=== PATIENT | female | born 1970 | race Caucasian/White ===

== ENCOUNTER 2020-04-04 13:04 | Outpatient (REF) | payer OTHER, SELFPAY | END 2020-04-04 13:05 | disposition home or self-care (01) | LOC: HO.LAB 13:04 | PROVIDERS: Visit Provider Internal Medicine | DX: Z20.822 Contact with and (suspected) exposure to COVID-19 (principal) | CPT/HCPCS: 36415; C9803; U0003; U0005 ==

== ENCOUNTER 2020-04-21 10:10 | Outpatient (REF) | payer OTHER, SELFPAY | END 2020-04-21 10:11 | disposition home or self-care (01) | LOC: HO.LAB 10:10 | PROVIDERS: PCP Internal Medicine; Visit Provider Internal Medicine | DX: Z20.822 Contact with and (suspected) exposure to COVID-19 (principal) | CPT/HCPCS: 36415; C9803; U0003; U0005 ==

== ENCOUNTER 2020-07-11 09:36 | Outpatient (REF) | payer OTHER, SELFPAY ==
[2020-07-11 09:53] LABS: COVID-19 Test Negative (Negative)
== END 2020-07-11 09:37 | disposition home or self-care (01) ==
LOC: HO.LAB 09:36
PROVIDERS: Visit Provider Internal Medicine
DX: Z20.822 Contact with and (suspected) exposure to COVID-19 (principal)
CPT/HCPCS: 36415; 87635; C9803

== ENCOUNTER 2021-09-09 22:50 | Emergency (ER) | payer OTHER, SELFPAY ==
[2021-09-09 23:29] VITALS: BP 128/89; PULSE 73; RESP 16; TEMP 36.2; O2SAT 94; BMI 34.4
--- NOTE | 2021-09-10 00:29 | ED_ITS ---
HPI - Extremity Problem General Chief complaint: Extremity Problem Stated complaint: Leg pain Time Seen by Provider: 09/09/21 23:53 History of Present Illness HPI Narrative: Patient is a 51-year-old female presents today with having left leg bruising. Is an area of bruising approximately 3 cm x 3 cm in size. Patient did not recall any specific event that triggered this. Came in for help. Patient denies any shortness of breath any chest pain any dizziness. Denies any traveling. Denies any history of hormone replacement. No history of blood clots in the past. Patient denies any leg swelling. Came here for the bruising. Patient from home. No cough no congestion or upper respiratory symptoms. No diaphoresis. No difficulty ambulating. Related Data Allergies Allergy/AdvReac Type Severity Reaction Status Date / Time Penicillins [PENICILLINS] Allergy Unknown RASH Verified 09/09/21 23:32 sulfamethoxazole Allergy Unknown VOMITING, Verified 09/09/21 23:32 [From BACTRIM] DIZZY trimethoprim [From BACTRIM] Allergy Unknown VOMITING, Verified 09/09/21 23:32 DIZZY SEASONAL ALLERGIES Allergy Unknown ITCHY Uncoded 09/09/21 23:32 EYES, RUNNY NOSE, COUGH Review of Systems Review of Systems: Positive leg swelling Yes all other systems are reviewed and are negative PMFSH Past Medical History Attestation statement: The following information was validated with the patient. Social History Social History Advance Directives: No Physical Exam Vital Signs: Vital Signs: Last Vital Signs Temp 97.1 F 09/09/21 23:29 Pulse 73 09/09/21 23:29 Resp 16 09/09/21 23:29 BP 128/89 09/09/21 23:29 Pulse Ox 94 09/09/21 23:29 O2 Del Method 09/09/21 23:29 BMI result Body Mass Index 34.4 Appearance: Alert. Oriented X3. No acute distress. Eyes: Pupils equal, round and reactive to light. ENT: Pharynx normal. Neck: Normal inspection. Neck supple. No lymph nodes noted. No crepitus CVS: Normal heart rate and rhythm. Pulses normal. Normal S1 and S2 Respiratory: No respiratory distress. Breath sounds normal. No Wheezing. No rales Abdomen: Soft and nontender. No rigidity. No distention. good BS x4 Skin: Skin warm and dry. Normal skin color. Normal skin turgor. Extremities: No lower extremity edema. Neurovascular intact to all extremities. No Lacerations. Positive contusion to the left calf area proximally 3 cm x 3 cm in size. Neuro: Oriented X 3. No motor deficit. No sensory deficit. Moving all extermities. No slurred speech MDM - Extremity (Nontraumatic) MDM Narrative Medical decision making narrative: Well-appearing no acute distress. No shortness of breath no evidence for pulmonary emboli. Positive contusion to the calf area. Question secondary to DVT. A D-dimer will be ordered. If it is negative will get patient an ultrasound in a.m.. If it is positive the patient's shot of Lovenox and get ultrasound in a.m.. Currently in stable condition. Patient's D-dimer was negative. Unlikely be of DVT. Nevertheless an ultrasound be ordered for a.m.. Will not give anticoagulation at this Lab Data Result diagrams: 09/10/21 00:59 09/10/21 00:59 Labs: Lab Results 09/10/21 09/10/21 09/10/21 Range/Units 00:59 00:59 00:59 WBC 13.9 H (4.8-10.8) X10*3/uL RBC 4.54 (4.20-5.50) X10*6/uL Hgb 13.3 (12.0-16.0) g/dl Hct 40.0 (37.0-47.0) % MCV 88.1 (80.0-98.0) fL MCH 29.3 (27.0-33.0) pg MCHC 33.3 (31.0-35.0) g/dl RDW 13.0 (11.0-16.0) % Plt Count 342 (160-400) X10*3/uL MPV 8.8 L (9.4-12.3) fL Immature Gran % (Auto) 0.2 (0.0-0.4) % Neut % (Auto) 58.0 (45-73) % Lymph % (Auto) 32.5 (20-40) % [place] % (Auto) 7.2 (2-11) % Eos % (Auto) 1.7 (0-4) % Baso % (Auto) 0.4 (0-2) % Lymph # (Auto) 4.5 (1.2-4.9) X10*3/uL [place] # (Auto) 1.0 (0.1-1.2) X10*3/uL Eos # (Auto) 0.2 (0.0-0.4) X10*3/uL Baso # (Auto) 0.1 (0.0-0.2) X10*3/uL Abs Immat Gran (auto) 0.03 (0.00-0.03) X10*3/uL Absolute Neuts (auto) 8.1 (2.0-8.3) x10*3/uL Absolute Nucleated RBC 0.000 (0.0-0.012) X10*3/uL Nucleated RBC % (auto) 0.0 (0.0-0.2) /100WBC PT 10.1 (10.0-13.1) SEC INR 0.9 (0.9-1.1) D-Dimer High Sensitivty < 150 NG/ML Sodium 137 (135-145) mmol/L Potassium 3.7 (3.3-5.1) mmol/L Chloride 104 (96-108) mmol/L Carbon Dioxide 24 (22-29) mmol/L Anion Gap 13 (12-20) BUN 8 L (9-16) mg/dL Creatinine 0.84 (0.5-1.4) mg/dL Estim Creat Clear Calc 77.1 Estimated GFR > 60 Random Glucose 113 (60-115) mg/dL Calcium 9.1 (8.4-10.2) mg/dL Discharge Plan Discharge Clinical Impression: Acute leg pain Patient Disposition: Home, Self-Care Instructions: Leg Pain (ED) Referrals: Chirs Miranda MD [Primary Care Provider] -
[2021-09-10 01:04] LABS: MANUAL DIFF FLAG NO
[2021-09-10 01:08] LABS: Basophils Absolute Auto 0.1 X10*3/uL (0.0-0.2); Basophils Percent Auto 0.4 % (0-2); Eosinophils Absolute Auto 0.2 X10*3/uL (0.0-0.4); Eosinophils Percent Auto 1.7 % (0-4); Hemoglobin 13.3 g/dl (12.0-16.0); Imm Gran Abs Auto 0.03 X10*3/uL (0.00-0.03); Imm Gran Pct Auto 0.2 % (0.0-0.4); Lymphocytes Absolute Auto 4.5 X10*3/uL (1.2-4.9); Lymphocytes Percent Auto 32.5 % (20-40); Mean Corpuscular HGB Conc 33.3 g/dl (31.0-35.0); Mean Corpuscular Hemoglobin 29.3 pg (27.0-33.0); Mean Corpuscular Volume 88.1 fL (80.0-98.0); Mean Platelet Volume 8.8 fL (9.4-12.3); Monocytes Percent Auto 7.2 % (2-11); Neutrophils Absolute Auto 8.1 x10*3/uL (2.0-8.3); Platelet Count 342 X10*3/uL (160-400); Red Blood Count 4.54 X10*6/uL (4.20-5.50); White Blood Count 13.9 X10*3/uL (4.8-10.8)
[2021-09-10 01:16] LABS: INTERNATIONAL NORM RATIO 0.9 (0.9-1.1); Prothrombin Time 10.1 SEC (10.0-13.1)
[2021-09-10 01:19] LABS: Anion Gap 13 (12-20); Blood Urea Nitrogen 8 mg/dL (9-16); Calcium 9.1 mg/dL (8.4-10.2); Carbon Dioxide 24 mmol/L (22-29); Chloride 104 mmol/L (96-108); Creatinine Clr Calc Pharmacy 77.1; D Dimer High Sensitivity < 150 NG/ML; Estimated Glomerular Filt Rate > 60; Glucose Random 113 mg/dL (60-115); Potassium 3.7 mmol/L (3.3-5.1); Sodium 137 mmol/L (135-145)
== END 2021-09-10 02:20 | disposition home or self-care (01) ==
PROVIDERS: Emergency Provider Emergency Medicine Emergency Medical Services; PCP Internal Medicine
DX: M79.605 Pain in left leg (principal); Z79.899 Other long term (current) drug therapy
CPT/HCPCS: 36415; 80048; 85025; 85379; 85610; 99281; 99283

== ENCOUNTER → 2022-05-27 14:57 | Outpatient (BNVA) | payer OTHER, SELFPAY | PROVIDERS: PCP Internal Medicine; Visit Provider Internal Medicine | DX: G90.529 Complex regional pain syndrome I of unspecified lower limb (principal) | CPT/HCPCS: 99202 ==

== ENCOUNTER 2024-11-19 20:42 | Emergency (ER) | payer SELFPAY ==
--- NOTE | ~2024-11-19 | CT_ITS ---
CLINICAL HISTORY: fall, in c collar CT cervical spine without contrast Comparison: None provided Findings: No acute fracture or dislocation. Posterior alignment is normal. Moderate degenerative change. No radiopaque foreign bodies. Impression: No acute processes This document has been electronically signed by: Ankit Alves MD on 11/19/2024 23:06:50
--- NOTE | ~2024-11-19 | CT_ITS ---
CLINICAL HISTORY: fall, in c collar CT head without contrast Comparison: None provided Findings: No intracranial mass, midline shift, hydrocephalus, or acute hemorrhage. No acute process in sinuses or mastoids. No acute bony abnormality. Impression: No acute intracranial process This document has been electronically signed by: Ankit Alves MD on 11/19/2024 23:08:02
[2024-11-19 21:15] VITALS: BP 130/78; PULSE 79; O2SAT 95; BMI 35.0
--- OUTSIDE RECORDS SUMMARY | 2024-11-19 21:42 | XMS_ITS | Encounter Summary ---
Author Organization [facility] Address [address] [place] [phone] Phone Care Team Providers Care Poultry Breeder Name Role Phone Chris Miranda MD Primary Care Provider + Encounter Details Date Type Department Care Team (Late st Contact Info) Description 06/18/2021 Procedure Pass [facility], [address] [address] Social History Tobacco Use Types Packs/Day Years Used Date Smoking Tobacco: Every Day Smokeless Tobacco: Never Comments:She states she woul d like to quit, but not during holiday season Alcohol Use Standard Drinks/Week Comments Not Currently 0 (1 standard drink = 0.6 oz pur e alcohol) Comments No Sex and Gender Information Value Date Recorded Sex Assigned at Female 04/01/2019 2:42 PM EST Legal Sex Female 7:44 AM EDT Gender Identity Female 04/01/2019 2:42 PM EST Sexual Orientation Straight 02/22/2021 9: 12 PM EST documented as of this encounter Plan of Treatment Not on file documented as of this encounter Visit Diagnoses Not on filedocumented in this encounter Care Teams Poultry Breeder Relationship Specialty Start Date End Date Chris Miranda MD [address] [place] [phone] PCP - General Internal Medicine 11/13/18 documented as of this encounter Additional Source Comments The information contained in this document represents components of the legal health record. It is not the complete legal health record.[facility]
--- OUTSIDE RECORDS SUMMARY | 2024-11-19 21:42 | XMS_ITS | Clinical Summary ---
Author Organization [facility] Address [address] [place] [phone] Phone Care Team Providers Care Claim Review Medical Director Name Role Phone Chris Miranda MD Primary Care Provider + Allergies Active Allergy Reactions Criticality Noted Date Comments Penicillin 06/27/2023 Penicillins 01/08/2019 Sulfa (Sulfonamide Antibiotics) 10/2018 Sulfamethoxazole-Trimethoprim 2023 Medications citalopram (CELEXA) 10 MG tablet Take 40 mg by mouth daily. Active levothyroxine (SYNTHROID, LEVOTHROID) 100 MCG tablet Take 100 mcg by mouth every morning. Active meloxicam (MOBIC) 15 MG tablet Take 1 tablet (15 mg total) by mouth daily. 30 tablet 2 Active montelukast (SINGULAIR) 10 mg tablet Take 10 mg by mouth nightly at bedtime. Active fluticasone propionate (FLONASE) 50 mcg/actuation nasal spray 1 spray by Nasal route daily. Active diclofenac sodium (VOLTAREN) 1 % Gel Apply topically as needed for other (free text field). prn Active gabapentin (NEURONTIN) 300 MG capsuleIndicati ons:Neuropathic pain Take 1 capsule (300 mg total) by mouth every evening. 90 capsule 1 4 Active gabapentin (NEURONTIN) 400 MG capsuleIndicati ons:Neuropathic pain Take 1 capsule (400 mg total) by mouth every morning. 90 capsule 1 4 Active omeprazole (PRILOSEC) 20 MG capsule Take 1 capsule by mouth every morning. 4 Active citalopram (CELEXA) 40 MG tablet Take 1 tablet by mouth every morning. 4 Active levothyroxine (SYNTHROID, LEVOTHROID) 50 MCG tablet Take 2 tablets by mouth every morning. 4 Active levalbuterol (XOPENEX HFA) 45 mcg/actuation inhaler Inhale 2 puffs into the lungs every 4 (four) hours as needed for wheezing. 15 g 4 Active Active Problems Problem Noted Date Diagnosed Date Elevated sed rate 12/19/2022 Overview (12/19/2022): ESR 31 (05/2022); nl x2 in 2019 Assessment & Plan (12/19/2022 5:24 PM EDT): Mild ESR elevation non-specific; ideally would repeat during next episode of severe generalized pain as well as during a time when pain is relatively mild. There is no specific objective evidence to date of underlying inflammatory arthritis or connective tissue disease. Paresthesias 05/10/2022 Assessment & Plan (05/10/2022 10:50 AM EST): Transient but localized paresthesias as detailed in HPI; ddx underlying OA and fibromyalgia Generalized pain 05/10/2022 Assessment & Plan (12/19/2022 5:23 PM EDT): Briefly reviewed common clinical features of fibromyalgia; written information on dx previously provided to patient. Significant symptomatic benefit of meloxicam c/w OA > fibromyalgia. May be useful to obtain updated routine labs and inflammatory markers during next episode of severe generalized pain. Assessment & Plan (05/10/2022 10:54 AM EST): Some features s/o fibromyalgia though clear OA involving c-spine and right 1st CMC. Pain improved on current regimen of daily meloxicam plus gabapentin 400 mg q AM + 300 mg qPM. Concern for ASHIA given Mallampati III airway and reported snoring; advised patient re: relationship between fatigue and pain and recommend dedicated discussion of baseline sleep study with her PCP. Updated labs today. Written information on fibromyalgia provided to patient for review. Vitamin D deficiency, unspecified 05/10/2022 Localized primary osteoarthr itis of carpometacarpal (CMC) joint of thumb 05/10/2022 Overview (12/19/2022): Plain films 12/2021, R > L Assessment & Plan (12/19/2022 5:21 PM EDT): intra-articular steroid injection today as detailed in procedure note Assessment & Plan (05/10/2022 10:49 AM EST): For detailed discussion of potential benefit of intra-articular steroid injection on f/u superintendent terminal current use of non -steroidal anti-inflammatories (NSAID) 05/10/2022 Overview (05/10/2022): meloxicam Assessment & Plan (05/10/2022 10:54 AM EST): No symptomatic AEs of daily meloxicam; routine monitoring labs ordered Tenosynovitis of tibialis posterior tendon 05/10 Overview (05/10/2022): Left; MRI 07/2021 EMG/NCS 12/2021 Assessment & Plan (05/10/2022 11:01 AM EST): ? Benefit of PT - needs dedicated podiatry f/u Spondylosis of cervical imelda on without myelopathy or radiculopathy 12/04/2021 Overview (12/04/2021): Long hx of chronic neck pain Check baseline XR Consider formal PT- declines at this time Assessment & Plan (12/04/2021 10:00 AM EDT): Long hx of chronic neck pain Check baseline XR ? OA Consider formal PT- declines at this time May continue mobic which she finds helpful and denies any side effects -reminded needs labs 2 x year of chronic NSAID Dysuria 06/12/2021 Overview (06/12/2021): Reports foul smelling urine and discomfort Check UA F/u with PCP Assessment & Plan (06/12/2021 5:36 PM EDT): Reports foul smelling urine and discomfort Check UA F/u with PCP Chronic pain of left ankle 06/12/2021 Overview (05/10/2022): Remote h/o trauma; seen by podiatry and EMG/NCS 12/2021 r/o concern for tarsal tunnel syndrome Plain film 06/2021 No evidence of acute fractures. No subluxations or dislocations. Joint spaces well-maintained. Minimal degenerative spurring at the ankle. No evidence of erosions. Evidence of an anterior tibiotalar joint effusion. MRI 07/2021 Lateral ligaments: There is thickening of the anterior talofibular and calcaneofibular ligaments, consistent with prior injury. The posterior talofibular ligament is intact. Syndesmotic ligaments are intact. Medial ligaments: There is irregularity of the deep deltoid ligament, consistent with prior injury. Plantar fascia: The plantar fascia is normal. Peroneal tendons: Peroneus longus and brevis are intact. Flexor tendons: There is posterior tibial tendinosis with tenosynovitis. Posterior tibialis, flexor digitorum longus, and flexor hallucis longus are intact. Extensor tendons: Anterior tibialis, extensor hallucis longus, and extensor digitorum longus are intact. Achilles tendon: The Achilles tendon is normal. Bone: No fracture, osteonecrosis, or focal lesion. Joints: There is mild subchondral edema in the lateral talar dome, presumably related to overlying cartilage fissuring. No effusion or synovitis. Other: There is soft tissue thickening with edema replacing the fat in the sinus tarsi, and adjacent bone marrow edema. Assessment & Plan (05/10/2022 10:57 AM EST): Reviewed 12/2021 EMG/NCS findings and d/w patient; note localized paresthesias and remote trauma hx with plain film and MRI findings as above. Recommend podiatry vs sports medicine f/u, Assessment & Plan (06/12/2021 5:38 PM EDT): Remote Hx of left ankle sprain Tenderness lateral ligaments today Pes planus Suspect old injury is aggravated by pes planus. Suggested supportive shoes PT/Podiatry prn--> declines today XR -r/o OA Elevated TSH 09/30/2019 Primary osteoarthritis of both hands 03/12/2019 Assessment & Plan (12/04/2021 9:56 AM EDT): Mild OA by previous XR 01/2019. Ongoing hand pain bilateral, especially base of thumb ( ? Early OA vs Dequervain's) Repeat XR Consider EMG/NCS ? CTS if more neuropathic quality She finds Gabapentin helpful in AM Add 100 mg q PM for possible neuropathic pain. May titrate weekly by 100 mg to reach 300 mg Cautioned about potential for sedation, dizziness Assessment & Plan (06/12/2021 5:32 PM EDT): OA hands by hx, exam and XR Unclear if Mobic is helpful-d/c Trial of Nabumetone 500 mg BID with food Discussed the risks of NSAID use including: serious adverse cardiovascular thrombotic events, including fatal MT and stroke, serious gastrointestinal inflammation, ulceration, bleeding, and perforation as well as liver and kidney toxicity. We discussed the importance of using the lowest effective dose for the shortest interval necessary, and will continue to work to lower this dose. Pt understands that lab monitoring is required 2 x year on NSAID to include CBC ,Liver Functions, and creatinine Suggested right thumb CMC splint Injection may be performed prn Assessment & Plan (08/10/2020 9:30 AM EDT): Continue meloxicam 15 mg once daily with food. Continue CBD cream as needed. Assessment & Plan (05/11/2020 8:50 AM EST): Continue Meloxicam 15 mg Take one pill PO daily with food. Patient also uses CBD cream as needed. Neuropathy 02/11/2019 Assessment & Plan (12/04/2021 9:57 AM EDT): Carries diagnosis oif neuropathy but no formal EMG/NCS LE EMG/NCS pending at end of month Consider UE studies as well Plan to titrate dose of Gabapentin Assessment & Plan (06/12/2021 5:33 PM EDT): Carries diagnosis of neuropathy No formal EMG/NCS per pt Neuropathic pain well controlled on Gabapentin-will continue 400 mg q hs Assessment & Plan (08/10/2020 9:31 AM EDT): Increase Gabapentin to 400 mg daily. Assessment & Plan (05/11/2020 8:52 AM EST): Trial of Lyrica 75 mg Take one pill PO BID for Neuropathy therapy. Gabapentin has been ineffective. Dry eyes 02/11/2019 Assessment & Plan (08/10/2020 9:31 AM EDT): Refresh eyedrops as needed. Assessment & Plan (05/11/2020 8:52 AM EST): Continue Refresh eyedrops as needed. Family History Medical History Relation Comments Hypothyroidism Father Rheumatoid arthritis Father Cancer Maternal Grandmother Ovarian cancer Maternal Grandmother in her late 50's Diabetes Mother Coronary artery disease Paternal Grandfather Breast cancer Paternal Grandmother in her 70s Cancer Paternal Grandmother Heart failure Paternal Grandmother Relation Status Comments Father Alive Maternal Grandfather Alive Maternal Grandmother Mother Alive Paternal Grandfather Paternal Grandmother Social History Tobacco Use Types Packs/Day Years Used Date Smoking Tobacco: Every Day Cigarettes 0.5 31.7 Started: 1993 Passive Smoke Exposure: Past Smokeless Tobacco: Never Comments:She states she woul d like to quit, but not during holiday season Alcohol Use Standard Drinks/Week Comments Not Currently 0 (1 standard drink = 0.6 oz pur e alcohol) Education Answer Date Recorded Are you interested in more education? Not on ad e 06/28/2022 Are you concerned about learning? Not on file 06/28/2022 No 06/28/2022 No 06/28/2022 Digital Access Answer Date Recorded No 07/30/2022 No 07/30/2022 Reliable internet access at home? Not on file 07/30/2022 Device with a working camera? Not on file Comments No Sex and Gender Information Value Date Recorded Sex Assigned at Female 04/01/2019 2:42 PM EST Legal Sex Female 7:44 AM EDT Gender Identity Female 04/01/2019 2:42 PM EST Sexual Orientation Straight 02/22/2021 9: 12 PM EST Last Filed Vital Signs Vital Sign Reading Time Taken Comments Blood Pressure 112/72 07/19/2023 10:56 AM EDT Pulse 65 07/19/2023 10:56 AM EDT Temperature 36.8 C (98.2 F) 07/19/2023 10:56 AM EDT Respiratory Rate 18 06/17/2023 12:07 PM EDT Oxygen Saturation 97% 07/19/2023 10:56 AM EDT Inhaled Oxygen Concentration - - Weight 78 kg (172 lb) 07/19/2023 10:56 AM EDT Height 154.9 cm (5' 1 ) 07/19/2023 10:56 AM EDT Body Mass Index 32.5 07/19/2023 10:56 AM EDT Plan of Treatment Health Maintenance Due Date Last Done Comments Adult Td,Tdap Booster 1970 DEPRESSION SCREENING 1982 SMOKING Hx and SMOKELESS TOBACCO SCREENING 1983 HEPATITIS C SCREENING 02/10/1988 HIV ONE-TIME SCREENING (18-65 YEARS) 02/10/1988 PNEUMOCOCCAL VACCINES (50+ years) (1 of 2 - PCV) 1989 PAP SMEAR 1991 COLOGUARD 2015 COLONOSCOPY 2015 COLORECTAL CANCER SCREENING 2015 FIT TEST 2015 FOBT 2015 SIGMOIDOSCOPY 2015 VIRTUAL COLONOSCOPY 2015 ZOSTER VACCINES (1 of 2) 02/10/2020 TSH LEVEL 05/11/2023 05/10/2022, 01/01, 02/11/2019, Additional history exists MAMMOGRAM 07/10/2023 07/09/2021 INFLUENZA VACCINE (#1) 2024 COVID-19 VACCINE ( season) 2024 LIPID PANEL 01/17/2025 01/18/2020, 11/13/2018 SCREENING FOR DIABETES 05/10/2025 05/10/2022 HEPATITIS A VACCINES Aged Out No long er eligible based on patient's age to complete this topic HIB VACCINES Aged Out No longer eligi ble based on patient's age to complete this topic MENINGOCOCCAL VACCINES (ACWY) Aged Out No longer eligible based on patient's age to complete this topic MENINGOCOCCAL VACCINES (B) Aged Out N o longer eligible based on patient's age to complete this topic Medical Devices Not on file Procedures Procedure Name Priority Date/Time Associated Diagnosis Comments TSH WITH REFLEX Routine 05/10/2022 10:42 AM EST Generalized pain BI MAMMOGRAM SCREENING WITH TOMOSYNTHESIS WITH CAD (BILATERAL) Routine 07/09/2021 4:13 PM EDT Breast screening LIPID PANEL Routine 01/18/2020 3:45 PM EST Hypothyroidism, unspecified type Major depressive disorder, recurrent episode, moderate Tobacco use disorder from Last 3 Months or Most Recently Relevant to Health Maintenance Results * TSH with reflex (05/10/2022 10:42 AM EST) TSH 4.11 0.27 - 4.20 uIU/mL [facility] Blood 05/10/2022 10:4 2 AM EST 05/10/2022 10:47 AM EST us Lyly Moreno MD, MPH LAB BLOOD ORDERABLES Fin al Result Performing Organization Address City/State/[facility] Co de Phone Number [address] [phone] * BI MAMMOGRAM SCREENING WITH TOMOSYNTHESIS WITH CAD (BILATERAL) (07/09/2021 4:13 PM EDT) Anatomical Region Laterality Modality Breast Left, Breast Right, Breast Bilateral Bila teral Mammography 07/11/2021 8:40 AM EDT Impressions 07/11/2021 8:41 AM EDT No findings suspicious for malignancy are identified. In the absence of a worrisome palpable abnormality, annual screening mammography is recommended. BI-RADS CATEGORY: 1 - Negative. DENSITY: There are scattered fibroglandular densities. Narrative 07/11/2021 8:41 AM EDT This is the patient's new baseline exam. Bilateral 3-D tomosynthesis with 2-D reconstructions in the CC and MLO projection. Computer-aided detection system also utilized. No suspicious mass, asymmetry, architectural distortion or worrisome calcifications are identified in either breast. Procedure Note Lane George MD - 07/11/2021 This is the patient's new baseline exam. Bilateral 3-D tomosynthesis with 2-D reconstructions in the CC and MLOprojection. Computer-aided detection system also utilized. No suspicious mass, asymmetry, architectural distortion or worrisomecalcifications are identified in either breast. IMPRESSION: No findings suspicious for malignancy are identified. In the absence of aworrisome palpable abnormality, annual screening mammography isrecommended. BI-RADS CATEGORY: 1 - Negative. DENSITY: There are scattered fibroglandular densities. Chris Miranda MD IMG MG EXAMS Final Re sult * Lipid panel (01/18/2020 3:45 PM EST) HDL 67 mg/dL [facility] Comment: Interpretation <40 mg/dL: Low HDL cholesterol (major risk factor for CHD) Greater than or equal to 60 mg/dL: High HDL cholesterol ( negative risk factor for CHD) HDL - cholesterol is affected by a number of factors, e.g. smoking, excerise, hormones, sex and age. CHOLESTEROL 218 0 - 240 mg/dL [facility] TRIGLYCERIDES 111 30 - 160 mg/dL [facility] LDL 129 50 - 129 mg/dL [facility] Comment: LDL levels in terms of risk for coronary heart disease: <100 mg/dL: Optimal 100-129 mg/dL: Near or above optimal 130-159 mg/dL: Borderline high 160-189 mg/dL: High >190 mg/dL: Very High CARDIAC RISK RATIO 3.3 3.3 - 4.4 [facility] Blood 01/18/2020 3:45 PM EST 01/18/2020 3:49 PM EST us Chris Miranda MD LAB BLOOD ORDERABLES Fin al Result [facility] [address] [place] [address] from Last 3 Months or Most Recently Relevant to Health Maintenance Care Teams Claim Review Medical Director Relationship Specialty Start Date End Date Chris Miranda MD [address] [facility] [address] [place] [id number] PCP - General Internal Medicine 11/13/18 Additional Source Comments The information contained in this document represents components of the legal health record. It is not the complete legal health record.[facility]
--- OUTSIDE RECORDS SUMMARY | 2024-11-19 21:42 | XMS_ITS | Encounter Summary ---
Author Organization [facility] Address [address] [place] [address] [place] [phone] Phone Care Team Providers Care Skydiving Instructor Name Role Phone Chris Miranda MD Primary Care Provider + Encounter Details Date Type Department Care Team (Late st Contact Info) Description 09/13/2020 Ancillary Orders Virtual Department [address] [place] [address] Chris Miranda MD [address] [place] [phone] Breast screening Social History Tobacco Use Types Packs/Day Years Used Date Smoking Tobacco: Every Day Smokeless Tobacco: Never Comments:She states she woul d like to quit, but not during holiday season Alcohol Use Standard Drinks/Week Comments Not Currently 0 (1 standard drink = 0.6 oz pur e alcohol) Comments Unknown Sex and Gender Information Value Date Recorded Sex Assigned at Female 04/01/2019 2:42 PM EST Legal Sex Female 7:44 AM EDT Gender Identity Female 04/01/2019 2:42 PM EST Sexual Orientation Straight 02/22/2021 9: 12 PM EST documented as of this encounter Plan of Treatment Not on file documented as of this encounter Results * BI MAMMOGRAM SCREENING WITH TOMOSYNTHESIS WITH [...] Negative. DENSITY: There are scattered fibroglandular densities. us Chris Miranda MD IMG MG EXAMS Final Re sult documented in this encounter Visit Diagnoses Diagnosis Breast screening Breast screening, unspecified Breast screening Breast screening, unspecified documented in this encounter Care Teams Skydiving Instructor Relationship Specialty Start Date End Date Chris Miranda MD [address] [place] [phone] PCP - General Internal Medicine 11/13/18 documented as of this encounter Additional Source Comments The information contained in this document represents components of the legal health record. It is not the complete legal health record.[facility]
--- OUTSIDE RECORDS SUMMARY | 2024-11-19 21:42 | XMS_ITS | Encounter Summary ---
Author Organization [facility] Address [address] [place] [id number] Phone Care Team Providers Care Cardiology Tech Name Role Phone Chris Miranda MD Primary Care Provider + Encounter Details Date Type Department Care Team (Late st Contact Info) Description 09/13/2020 Procedure Pass [facility], [address] [id number] Social History Tobacco Use Types Packs/Day Years [...] on filedocumented in this encounter Care Teams Cardiology Tech Relationship Specialty Start Date End Date Chris Miranda MD [address] [id number] PCP - General Internal Medicine 11/13/18 documented as of this encounter Additional Source Comments The information contained in this document represents components of the legal health record. It is not the complete legal health record.[facility]
[2024-11-19 23:27] LABS: MANUAL DIFF FLAG NO
[2024-11-19 23:28] LABS: Hematocrit 39.8 % (37.0-47.0); Hemoglobin 14.0 g/dl (12.0-16.0); Imm Gran Abs Auto 0.05 X10*3/uL (0.00-0.03); Imm Gran Pct Auto 0.4 % (0.0-0.4); Lymphocytes Absolute Auto 2.8 X10*3/uL (1.2-4.9); Mean Corpuscular HGB Conc 35.2 g/dl (31.0-35.0); Mean Corpuscular Hemoglobin 29.9 pg (27.0-33.0); Mean Corpuscular Volume 84.9 fL (80.0-98.0); NRBC Abs Auto 0.000 X10*3/uL (0.0-0.012); NRBC Pct Auto 0.0 /100WBC (0.0-0.2); Platelet Count 353 X10*3/uL (160-400); Red Blood Count 4.69 X10*6/uL (4.20-5.50); White Blood Count 14.3 X10*3/uL (4.8-10.8)
[2024-11-19 23:42] LABS: Alanine Aminotransferase 18 U/L (0-31); Albumin Level 4.4 g/dL (3.5-5.0); Alkaline Phosphatase 61 U/L (39-117); Anion Gap 9 (12-20); Aspartate Amino Transferase 21 U/L (5-31); Blood Urea Nitrogen 13 mg/dL (9-16); Calcium 9.4 mg/dL (8.4-10.2); Carbon Dioxide 27 mmol/L (22-29); Chloride 107 mmol/L (96-108); Creatinine Clr Calc Pharmacy 63.2; Estimated Glomerular Filt Rate 58; Potassium 4.2 mmol/L (3.3-5.1); Sodium 139 mmol/L (135-145); Total Protein 6.9 g/dL (6.5-8.0)
--- NOTE | 2024-11-20 00:09 | ED.GENADULT ---
HPI - General Adult General Chief complaint: Fall Stated complaint: syncopal episode after smoking weed Time Seen by Provider: 11/19/24 22:43 History of Present Illness HPI narrative: Patient is a 54-year-old female just had dinner was smoking a marijuana outside the house. Then felt lightheaded while she is trying to walk to the bathroom. Then feel tingling sensation in her legs. Then had a syncopal episode. There is no chest pain during that time. There is no bloody stool. There is no fever no chills. Positive history of syncope x1 in the past. Patient from home. No coughing or congestion or upper respiratory symptoms. No history of blood clots. No history of leg swelling. Positive history of smoking. No history of diabetes, hypertension, high cholesterol, mi. She did hit her head. Related Data Home Medications ?Medication ?Instructions ?Recorded ?Confirmed citalopram 40 mg tablet 40 mg PO DAILY 05/27/22 05/27/22 fluticasone propionate 50 1 spray intranasal DAILY 05/27/22 05/27/22 mcg/actuation nasal spray,suspension gabapentin 100 mg capsule 100 mg PO DAILY 05/27/22 05/27/22 gabapentin 400 mg capsule 400 mg PO BEDTIME 05/27/22 05/27/22 levothyroxine 50 mcg tablet mcg PO 05/27/22 05/27/22 meloxicam 15 mg tablet 15 mg PO DAILY 05/27/22 05/27/22 montelukast 10 mg tablet 10 mg PO DAILY 05/27/22 05/27/22 omeprazole 20 mg capsule,delayed 20 mg PO DAILY 05/27/22 05/27/22 release Previous Rx's ?Medication ?Instructions ?Recorded clonazepam 1 mg tablet 1 mg PO ONCE #1 tab 05/27/22 Allergies Allergy/AdvReac Type Severity Reaction Status Date / Time Penicillins (PENICILLINS) Allergy Unknown RASH Verified 11/19/24 21:18 sulfamethoxazole (From Allergy Unknown VOMITING, Verified 11/19/24 21:18 BACTRIM) DIZZY trimethoprim (From BACTRIM) Allergy Unknown VOMITING, Verified 11/19/24 21:18 DIZZY SEASONAL ALLERGIES Allergy Unknown ITCHY Uncoded 11/19/24 21:18 EYES, RUNNY NOSE, COUGH Review of Systems Review of Systems: Positive head injury Yes all other systems are reviewed and are negative PMFSH Past Medical History Attestation statement: The following information was validated with the patient. Medical History Pain in toe of right foot Posterior tibial tendinitis, left leg Pain in toe of left foot Tinea pedis of both feet Dermatophytosis of nail Fibromyalgia Social History Social History Advance Directives: No Advance Directives Information Provided: No Do you have a plan to hurt others: No Plan Physical Exam ED Exam Exam: Appearance: Alert. Oriented X3. No acute distress. Eyes: Pupils equal, round and reactive to light. ENT: Pharynx normal. Neck: Normal inspection. Neck supple. No lymph nodes noted. No crepitus CVS: Normal heart rate and rhythm. Pulses normal. Normal S1 and S2 Respiratory: No respiratory distress. Breath sounds normal. No Wheezing. No rales Abdomen: Soft and nontender. No rigidity. No distention. good BS x4 Skin: Skin warm and dry. Normal skin color. Normal skin turgor. Extremities: No lower extremity edema. Neurovascular intact to all extremities. No Lacerations. No Rash Neuro: Oriented X 3. No motor deficit. No sensory deficit. Moving all extermities. No slurred speech Vital Signs: BMI result Body Mass Index 35.0 Medications Administered Discontinued Medications Generic Name Dose Route Start Last Admin Trade Name Freq PRN Reason Stop Dose Admin Sodium Chloride 1,000 mls @ 999 mls/hr 11/20/24 00:15 11/20/24 00:59 Ns IV 11/20/24 01:15 999 mls/hr .Q1H1M ESME Administration Sodium Chloride 1,000 mls @ 999 mls/hr 11/20/24 00:15 11/20/24 00:59 Ns IV 11/20/24 01:15 999 mls/hr .Q1H1M ESME Administration Medical Decision Making Medical Decision Making MDM Narrative: Patient went out to smoke some marijuana then followed lightheaded there was no chest pain had a true syncopal episode. CT scan of the head and C-spine by my interpretation was grossly negative. Two sets of cardiac enzymes are negative. History not consistent with having ACS. Differential Diagnosis Differential Diagnoses: The differential diagnosis associated with the presentation includes Syncope, ACS, anemia, marijuana use Admission/Observation Consideration of admission/observation: Escalation of care including admission/observation considered Lab Data MDM Lab Attestation statement: I reviewed the patient's lab results. 11/19/24 23:23 11/19/24 23:23 Labs: Lab Results 11/19/24 11/20/24 Range/Units 23:23 00:57 WBC 14.3 H (4.8-10.8) X10*3/uL RBC 4.69 (4.20-5.50) X10*6/uL Hgb 14.0 (12.0-16.0) g/dl Hct 39.8 (37.0-47.0) % MCV 84.9 (80.0-98.0) fL MCH 29.9 (27.0-33.0) pg MCHC 35.2 H (31.0-35.0) g/dl RDW 13.0 (11.0-16.0) % Plt Count 353 (160-400) X10*3/uL MPV 8.8 L (9.4-12.3) fL Immature Gran % (Auto) 0.4 (0.0-0.4) % Neut % (Auto) 71.7 (45-73) % Lymph % (Auto) 19.5 L (20-40) % [place] % (Auto) 6.7 (2-11) % Eos % (Auto) 1.1 (0-4) % Baso % (Auto) 0.6 (0-2) % Lymph # (Auto) 2.8 (1.2-4.9) X10*3/uL [place] # (Auto) 1.0 (0.1-1.2) X10*3/uL Eos # (Auto) 0.2 (0.0-0.4) X10*3/uL Baso # (Auto) 0.1 (0.0-0.2) X10*3/uL Abs Immat Gran (auto) 0.05 H (0.00-0.03) X10*3/uL Absolute Neuts (auto) 10.3 H (2.0-8.3) x10*3/uL Absolute Nucleated RBC 0.000 (0.0-0.012) X10*3/uL Nucleated RBC % (auto) 0.0 (0.0-0.2) /100WBC Sodium 139 (135-145) mmol/L Potassium 4.2 (3.3-5.1) mmol/L Chloride 107 (96-108) mmol/L Carbon Dioxide 27 (22-29) mmol/L Anion Gap 9 L (12-20) BUN 13 (9-16) mg/dL Creatinine 1.00 (0.5-1.4) mg/dL Estim Creat Clear Calc 63.2 Estimated GFR 58 Random Glucose 123 H (60-115) mg/dL Calcium 9.4 (8.4-10.2) mg/dL Total Bilirubin 0.3 (0.0-1.0) mg/dL AST 21 (5-31) U/L ALT 18 (0-31) U/L Alkaline Phosphatase 61 (39-117) U/L Troponin I High Sens < 2.7 < 2.7 (<3.5-17.0) ng/L Total Protein 6.9 (6.5-8.0) g/dL Albumin 4.4 (3.5-5.0) g/dL Independent Interpretation I performed an independent interpretation of an: EKG (Sinus heart rate is 80 WA QRS QTC within normal limits is no segment elevation) Independent Historian Clinical information obtained from an independent historian. History obtained from or confirmed by: Parent External Record Review External record reviewed: Office record (Outpatient office record reviewed) Social Determinants Patient?s care significantly limited by Social Determinants of Health including: Alcoholism and drug addiction in family Discharge Plan Discharge Clinical Impression: Syncope Patient Disposition: Home, Self-Care Instructions: Syncope (DC) Prescriptions: No Action fluticasone propionate 50 mcg/actuation spray,suspension 1 spray intranasal DAILY meloxicam 15 mg tablet 15 mg PO DAILY citalopram 40 mg tablet 40 mg PO DAILY gabapentin 100 mg capsule 100 mg PO DAILY gabapentin 400 mg capsule 400 mg PO BEDTIME levothyroxine 50 mcg tablet PO montelukast 10 mg tablet 10 mg PO DAILY omeprazole 20 mg capsule,delayed release(DR/EC) 20 mg PO DAILY clonazepam 1 mg tablet 1 mg PO ONCE Qty: 1 0RF Rx Instructions: administer 60 minutes before procedure Referrals: Physician,Keyon J [Primary Care Provider, Medical] - 11/22/24 Emanuel Cook MD [Physician, Cardiology] - 11/23/24 Print Language: Slovak
[2024-11-20 00:36] LABS: Troponin-I High Sensitivity < 2.7 ng/L (<3.5-17.0)
[2024-11-20 01:31] LABS: Troponin-I High Sensitivity < 2.7 ng/L (<3.5-17.0)
--- NOTE | 2024-11-20 01:35 | ECG_ITS ---
Test Reason : SYNCOPE Blood Pressure : */* mmHG Vent. Rate : 81 BPM Atrial Rate : 81 BPM P-R Int : 138 ms QRS Dur : 82 ms QT Int : 384 ms P-R-T Axes : 74 59 47 degrees QTcB Int : 446 ms Normal sinus rhythm Low voltage QRS Borderline ECG No previous ECGs available Referred By: Jessy Colindres Electronically Signed By: LOLY SIMS
[2024-11-20 01:59] VITALS: BP 107/78; PULSE 78
[2024-11-20 02:07] VITALS: BP 116/81; BP 119/70; PULSE 78; PULSE 84
[2024-11-20 02:08] VITALS: BP 116/81; PULSE 84; TEMP 36.7; O2SAT 95
[2024-11-20 02:28] VITALS: BP 116/81; PULSE 84; RESP 16; TEMP 36.7; O2SAT 95
--- NOTE | 2024-11-20 02:28 | PC.NURSE ---
asymptomatic during orthos and upon d/c ambulating with daughter to exit steadily
== END 2024-11-20 02:28 | disposition home or self-care (01) ==
PROVIDERS: Emergency Provider Emergency Medicine Emergency Medical Services
DX: R55 Syncope and collapse (principal); F12.90 Cannabis use, unspecified, uncomplicated; R11.0 Nausea; R51.9 Headache, unspecified; M54.2 Cervicalgia; Z79.899 Other long term (current) drug therapy
CPT/HCPCS: 36415; 70450; 72125; 80053; 84484; 85025; 93005; 96360; 99284

== ENCOUNTER → 2024-11-19 21:21 | Outpatient (BNV) | payer SELFPAY | PROVIDERS: Emergency Provider Emergency Medicine Emergency Medical Services; Visit Provider Radiology Diagnostic Radiology | DX: Z04.3 Encounter for examination and observation following other accident (principal); R55 Syncope and collapse; W19.XXXA Unspecified fall, initial encounter | CPT/HCPCS: 70450; 72125 ==

== ENCOUNTER → 2024-11-20 01:35 | Outpatient (BNV) | payer SELFPAY | PROVIDERS: Emergency Provider Emergency Medicine Emergency Medical Services; Visit Provider Internal Medicine | DX: R55 Syncope and collapse (principal) | CPT/HCPCS: 93010 ==